=== PATIENT | male | born 1975 | race Two or more races ===

== ENCOUNTER 2018-07-31 14:45 | Emergency (ER) | payer OTHER ==
[~2018-07-31] VITALS: Ht 172.7 cm; Wt 67.6 kg
[2018-07-31] MEDS ORDERED: TUSSIONEX PENN115 ML PO (20:44)
== END 2018-07-31 20:49 | disposition home or self-care (01) ==
LOC: ER 14:45
DX: L40.8 Other psoriasis (principal)